=== PATIENT | female | born 1975 | race Caucasian/White ===

== ENCOUNTER 2023-10-09 14:11 | Emergency (ER) | payer MEDICAID, SELFPAY ==
[2023-10-09 14:19] VITALS: BP 130/87; PULSE 105; RESP 16; TEMP 37.1; O2SAT 95; BMI 28.3
--- NOTE | 2023-10-09 14:32 | CRLHL7_ITS ---
For Patients: As a result of the Cures Act, medical imaging exams and procedure reports are released immediately into your electronic medical record. You may view this report before your referring provider. If you have questions, please contact your health care provider. INDICATION: Cough; congestion; fever; body aches. COMPARISON: None. TECHNIQUE: Single portable AP chest. FINDINGS: Patchy infiltrate in the left perihilar location. No pneumothorax or pleural effusion. Normal size cardiac silhouette. IMPRESSION: Infiltrate left perihilar location. Dictated by Klaudia Orozco MD @ 10/09/2023 3:11:50 PM (Electronically Signed)
--- NOTE | 2023-10-09 14:34 | ED.GENADULT ---
HPI - General Adult General Chief complaint: Fever Stated complaint: Congestion, body aches, fever Time Seen by Provider: 10/09/23 14:24 History of Present Illness HPI narrative: Patient is a 48 year white female who has had a cough for couple of days, she feels chilled at night, congestion her throat. She took a home COVID test was negative today. She has had no history of lung problems. She denies . No leg swelling edema, no chest pain. She has had congestion and sore throat and cough as mention. Related Data Home Medications ?Medication ?Instructions ?Recorded ?Confirmed Norvasc 10/09/23 Prevacid 10/09/23 Valium 10/09/23 Previous Rx's ?Medication ?Instructions ?Recorded albuterol sulfate 90 mcg/actuation 2 puff inhalation Q6H PRN 10/09/23 aerosol inhaler shortness of breath or wheezing #6.7 grams azithromycin 250 mg tablet See Rx Instructions PO .COMPLEX #6 10/09/23 (Zithromax Z-Yonny) tabs methylprednisolone 4 mg tablets in See Rx Instructions PO .COMPLEX 10/09/23 a dose pack (Medrol (Yonny)) #21 ea Allergies Allergy/AdvReac Type Severity Reaction Status Date / Time No Known Drug Allergies Allergy Verified 10/09/23 14:24 Review of Systems Status of ROS: Reports: 6 or more systems reviewed and unremarkable except as noted in History and below Exam Narrative: Exam Narrative: Objective: Vital signs unremarkable, afebrile, O2 sat 95% on room air HEENT is unremarkable throat appears clear neck is supple chest good air exchange bilaterally, no rales or wheezing. Extremities are no edema neurologic nonfocal Const: Vital Signs, click to edit/add: Vital Signs - 24 hr 10/09/23 14:19 Temperature 98.7 F Pulse Rate [Pulse Oximeter] 105 H Respiratory Rate 16 [facility] 130/87 Pulse Oximetry 95 Oxygen Delivery Me thod Room Air Course Vital Signs Vital signs: Initial Vital Signs Temperature 98.7 F 10/09/23 14:19 Temperature Source Temporal Artery Scan 10/09/23 14:19 Pulse Rate 105 H 10/09/23 14:19 Respiratory Rate 16 10/09/23 14:19 Blood Pressure 130/87 10/09/23 14:19 Blood Pressure Mean 101 10/09/23 14:19 Blood Pressure Position Sitting 10/09/23 14:19 Pulse Oximetry 95 10/09/23 14:19 Oxygen Delivery Method Room Air 10/09/23 14:19 Vital Signs Temperature 98.7 F 10/09/23 14:19 Pulse Rate 105 H 10/09/23 14:19 Respiratory Rate 16 10/09/23 14:19 Blood Pressure 130/87 10/09/23 14:19 Pulse Oximetry 95 10/09/23 14:19 Oxygen Delivery Method Room Air 10/09/23 14:19 Temperature 98.7 F 10/09/23 14:19 Pulse Rate 105 H 10/09/23 14:19 Respiratory Rate 16 10/09/23 14:19 Blood Pressure 130/87 10/09/23 14:19 Pulse Oximetry 95 10/09/23 14:19 Oxygen Delivery Method Room Air 10/09/23 14:19 Medical Decision Making MDM Narrative Medical decision making narrative: [age] year white female with cough congestion body aches, rule out COVID rule out influenza rule out RSV, patient will geA triple swab. Will also get a chest x-ray to make sure show no pneumonia. Disposition pending findings above. Addendum 3:05 p.m. the patient has a negative chest x-ray by my read, her COVID is still pending, certainly it could be a possibility. She does not appear to be hypoxic and does not appear to have a fever. I think at this point be reasonable to use albuterol and give her Medrol Dosepak. She does report history of bronchospasm in the past. I think it would help her the most. Rest light activity fluids Tylenol as needed. Return as needed. Because of the patient's asthma I think it be reasonable to cover her with antibiotics as well, will use Z pack and recheck as needed. COVID is negative Lab Data Labs: Lab Results 10/09/23 10/09/23 Range/Units 14:40 Unknown SARS-CoV-2 (PCR) Negative SARS-CoV-2 (Negative) Influenza Type A (PCR) Negative PCR FLU A (Negative) Influenza Type B (PCR) Negative PCR FLU B (Negative) RSV (PCR) Negative PCR RSV (Negative) Group A Strep DNA NOT DETECTED (Not Detectd) Discharge Plan Discharge Clinical Impression: Cough, Acute viral syndrome, Asthma Patient Disposition: Home w/ Parent or Adult Condition: Stable Additional Instructions: Rest, fluids, Tylenol as needed, will give you an albuterol inhaler in a steroid pack to see if will help reduce her cough. Follow-up with primary care doctor next few days not improving changes concerns worsening return to the ED. Activity Level: Light activity Discharge Diet: Regular Prescriptions: New albuterol sulfate 90 mcg/actuation HFA aerosol inhaler 2 puff inhalation Q6H PRN (Reason: shortness of breath or wheezing) Qty: 6.7 0RF methylprednisolone [Medrol (Yonny)] 4 mg tablets,dose pack See Rx Instructions .ROUTE .COMPLEX Qty: 21 0RF Rx Instructions: orally per package directions azithromycin [Zithromax Z-Yonny] 250 mg tablet See Rx Instructions .ROUTE .COMPLEX Qty: 6 0RF Rx Instructions: For 250 mg dose pack: take 500 mg today (day 1), then 250 mg for 4 days (days 2-5) No Action Norvasc Valium Prevacid Stand Alone Forms: [facility] Info Instructions
[2023-10-09 15:09] LABS: Strep A DNA Probe* NOT DETECTED (Not Detectd)
[2023-10-09 15:09] LABS: PCR FLU A Negative PCR FLU A (Negative); PCR FLU B Negative PCR FLU B (Negative); PCR RSV Negative PCR RSV (Negative); SARS PCR* Negative SARS-CoV-2 (Negative)
== END 2023-10-09 15:20 | disposition home or self-care (01) ==
LOC: ED 15:07
PROVIDERS: Emergency Provider Family Medicine
DX: R05.9 Cough, unspecified (principal); B34.9 Viral infection, unspecified; J45.909 Unspecified asthma, uncomplicated
CPT/HCPCS: 71045; 87631; 87651; 99283; 99284